=== PATIENT | male | born 1960 | race Caucasian/White ===

== ENCOUNTER 2017-05-18 08:58 | Emergency (ER) | payer OTHER ==
[2017-05-18 09:03] VITALS: RESP 18; TEMP 97
--- NOTE | 2017-05-18 09:26 | XR ---
EXAMINATION TYPE: XR ankle complete LT DATE OF EXAM: 05/18/2017 COMPARISON: NONE HISTORY: Pain FINDINGS: Three views of the ankle demonstrate the ankle mortise to be intact and symmetric. The joint spaces are preserved. The osseous structures are intact. There is soft tissue edema. Tiny calcaneal spurs noted. There is a lucency along the upper margin of the calcaneus. IMPRESSION: 1. Thin lucency along the upper margin of the calcaneus seen on the lateral view. Could not exclude a hairline fracture. Correlate with point tenderness and if warranted CT scan.
--- NOTE | 2017-05-18 09:27 | XR ---
EXAMINATION TYPE: XR foot complete LT DATE OF EXAM: 05/18/2017 COMPARISON: NONE HISTORY: Pain TECHNIQUE: Three views are submitted. FINDINGS: Chronic appearing deformity of the first metatarsal. Tiny metallic densities adjacent first MTP densi ty could be related to chronic foreign body. Nose valgus deformity with arthropathy of the MTP joint. Tiny calcaneal spurs noted. IMPRESSION: 1. No acute fracture or dislocation. If symptoms persist, follow-up exam in 7 to 10 days could be ob tained.
--- NOTE | 2017-05-18 09:32 | ED ---
Lower Extremity Injury HPI - General Chief Complaint: Extremity Injury, Lower Stated Complaint: blood clot in left leg Time Seen by Provider: 05/18/17 09:15 Source: patient, RN notes reviewed Mode of arrival: wheelchair Limitations: no limitations - History of Present Illness Initial Comments: This a 36-year-old male presents emergency department to complaint of left foot and ankle pain. Patient states he injured his on Tuesday. He states that he got home from traveling from [place] and states that he stepped on snow and felt a pop. Patient states he fell that he does injured his ankle and wanted onto the weekend. Patient states wanted to go away so he became concerned. Patient went to my expressed sent here to rule out DVT. Patient no x-rays prior arrival. Patient denies any chest pain or shortness breath no history DVT. - Related Data Previous Rx's Medication Instructions Recorded Hydrocodone/Acetaminophen [[place] 1 tab PO Q6HR PRN #15 tab 05/18/17 5-325] Allergies Allergy/AdvReac Type Severity Reaction Status Date / Time No Known Allergies Allergy Verified 05/18/17 09:03 Review of Systems ROS Statement: Those systems with pertinent positive or pertinent negative responses have been documented in the HPI. ROS Other: All systems not noted in ROS Statement are negative. Past Medical History Past Medical History: Hypertension History of Any Multi-Drug Resistant Organisms: None Reported Past Surgical History: Appendectomy Past Psychological History: No Psychological Hx Reported Smoking Status: Never smoker Past Alcohol Use History: Occasional Past Drug Use History: None Reported General Exam Limitations: no limitations General appearance: alert, in no apparent distress Head exam: Present: atraumatic, normocephalic, normal inspection Respiratory exam: Present: normal lung sounds bilaterally. Absent: respiratory distress, wheezes, rales, rhonchi, stridor Cardiovascular Exam: Present: regular rate, normal rhythm, normal heart sounds. Absent: systolic murmur, diastolic murmur, rubs, gallop, clicks Extremities exam: Present: other (Left ankle, foot and distal tib-fib region there is moderate swelling pedal pulses equal bilaterally there is no swelling noted of the right. There is mild tenderness to the lateral foot, minimal to the left ankle) Skin exam: Present: warm, dry, intact, normal color. Absent: rash Course Vital Signs 05/18/17 05/18/17 08:58 10:33 Temperature 97 F L Pulse Rate 77 74 Respiratory 18 18 Rate Blood Pressure 153/108 143/87 O2 Sat by Pulse 97 97 Oximetry Medical Decision Making - Medical Decision Making 36-year-old male present emergency department for left ankle injury possible blood clot. Ultrasound Reviewed No Acute DVT. X-Ray Showed Possible Lucency of the Calcaneus Which CT Was Performed No Acute Fracture. Patient Has Swelling to the Left Leg Related to Trauma. He Is Advised to Elevate Rest Ice. Patient Be Discharged with Pain Medication. Disposition Clinical Impression: Left ankle sprain, Left leg swelling Disposition: HOME SELF-CARE Condition: Stable Instructions: Ankle Sprain (ED), Leg Edema (ED) Additional Instructions: Please return to the Emergency Department if symptoms worsen or any other concerns. Prescriptions: Hydrocodone/Acetaminophen [[place] 5-325] 1 tab PO Q6HR PRN #15 tab PRN Reason: Pain Referrals: None,Stated [Primary Care Provider] - 1-2 days Baldomero Bowers MD [STAFF PHYSICIAN] - 1-2 days Time of Disposition: 11:55
[2017-05-18 10:34] VITALS: BP 143/87; PULSE 74
--- NOTE | 2017-05-18 10:35 | US ---
EXAMINATION TYPE: US venous doppler duplex LE LT DATE OF EXAM: 05/18/2017 10:09 AM COMPARISON: NONE CLINICAL HISTORY: 56-year-old male Pain. SIDE PERFORMED: Left TECHNIQUE: The lower extremity deep venous system is examined utilizing real time linear array sonog lay with graded compression, doppler sonography and color-flow sonography. FINDINGS: VESSELS IMAGED: External Iliac Vein (EIV) Common Femoral Vein Deep Femoral Vein Greater Saphenous Vein * Femoral Vein Popliteal Vein Small Saphenous Vein * Proximal Calf Veins (* superficial vessels) Left Leg: Internal echoes are seen throughout the lower extremity venous system most prominently see n at the level of the external iliac vein but seen down through the proximal calf veins. There is sat isfactory color flow through this area and complete compressibility. IMPRESSION: No evidence for DVT within the left lower extremity imaged from the groin to the upper calf at this t john. Internal echoes within the deep venous system suggest rouleaux/slow flow. Follow-up as indicated .
--- NOTE | 2017-05-18 11:52 | CT ---
EXAMINATION TYPE: CT ankle LT wo con DATE OF EXAM: 05/18/2017 COMPARISON: X-ray left ankle 05/18/2017 HISTORY: swelling/pain lt calcaneus area. CT DLP: 306 mGycm. Automated Exposure Control for Dose Reduction was Utilized. TECHNIQUE: CT of the left ankle is performed at 3 mm thick sections. Reconstructed images in coronal and sagittal plane are reviewed. Bone and soft tissue windows are reviewed. Findings: There is diffuse soft tissue swelling about the ankle. The ankle mortise appears intact. N o displaced fractures are identified. Attention is paid to the calcaneus. An acute fracture is not identified. Achilles tendon calcaneal he el spur may be present. Cuneiform metatarsal alignment appears normal. Forefoot osseous structures ap pear intact. Three-D reconstructed images are performed and reviewed. No suspicious osseous abnormality is evident . IMPRESSIONS: 1. Some soft tissue swelling predominantly about the ankle slightly greater along lateral aspect. Geovanny e soft tissue swelling may be at the heel as well. 2. Lucency within the superior posterior calcaneus identified on x-ray appears to be related to the t rabeculation pattern on the CT examination. Acute cortical defect is not identified. Follow-up 7-10 d ays from acute trauma for continued pain is recommended.
== END 2017-05-18 12:22 | disposition home or self-care (01) ==
LOC: EC 08:58
DX: S93.402A Sprain of unspecified ligament of left ankle, initial encounter (principal); W18.31XA Fall on same level due to stepping on an object, initial encounter; Y93.89 Activity, other specified
CPT/HCPCS: 99284